=== PATIENT | male | born 1950 | race Caucasian/White ===

== ENCOUNTER 2019-07-14 10:21 | Outpatient (CLI) | payer MEDICARE, SELFPAY ==
--- NOTE | 2019-07-14 10:31 | ECG_ITS ---
Measurements Intervals [place] Rate: 58 P: 54 FL: 187 QRS: -21 QRSD: 165 T: 71 QT: 434 QTc: 429 Interpretive Statements SINUS BRADYCARDIA LEFT BUNDLE BRANCH BLOCK BASELINE ARTIFACT- I, II, III, AVR, AVL, AVF, V1-V6 ABNORMAL ECG Electronically Signed On 07-14-2019 11:50:08 [employer] by Graham Reis D.O.
== END 2019-07-14 10:22 | disposition home or self-care (01) ==
PROVIDERS: PCP Internal Medicine; Visit Provider Urology
DX: Z01.818 Encounter for other preprocedural examination (principal); I48.91 Unspecified atrial fibrillation; C61 Malignant neoplasm of prostate; I44.7 Left bundle-branch block, unspecified
CPT/HCPCS: 87086; 87088; 93005

== ENCOUNTER 2019-07-20 01:08 | Day surgery (SDC) | payer MEDICARE, SELFPAY ==
[2019-07-08 15:45] VITALS: BMI 29.0
[2019-07-20] VITALS (8 sets, daily range): BP systolic 115–149; BP diastolic 67–89; PULSE 57–65; RESP 8–18; TEMP 36.3–36.6; O2SAT 96–100
--- NOTE | 2019-07-20 08:49 | WPDHPUPDATE1 ---
History and Physical Update Update Date/Time: 07/20/19 08:49 History and Physical has been reviewed, including an updated exam of the patient. There are NO changes in the patient's condition. Risks, benefits, and alternatives have been discussed and questions answered. Patient agrees to proceed with procedure.
[2019-07-20] MEDS: LACTATED RINGERS 1,000 ML 30 ML IV CONT ×2 (09:32→11:49)
--- NOTE | 2019-07-20 09:47 | WPDHPUPDATE1 ---
History and Physical Update Update Date/Time: 07/20/19 09:47 History and Physical has been reviewed, including an updated exam of the patient. There are NO changes in the patient's condition. Risks, benefits, and alternatives have been discussed and questions answered. Patient agrees to proceed with procedure. Plan for Space OAR placement.
--- NOTE | 2019-07-20 09:48 | WPDANESEPPF ---
Anes - Initial Pre Proc Eval Procedure: Operation Date: 07/20/19 10:30 Proposed Procedures p Insertion Space OAR Hydrogel System - Dipak Salmon MD Date/Time: 07/20/19 09:48 Surgeon: Dipak Salmon MD Pre Op Diagnosis: Prostate CA Patient Data Age: 69 Gender: M Height: 6 ft 1 in Weight: 102.8 kg Last Vital Signs Temp 36.6 C 07/20/19 09:30 Pulse 57 L 07/20/19 09:30 Resp 18 07/20/19 09:30 BP 125/75 07/20/19 09:30 Pulse Ox 96 07/20/19 09:30 Allergies Allergy/AdvReac Type Severity Reaction Status Date / Time No Known Allergies Allergy Unknown Unverified 07/20/19 09:27 Home Medications Medication Instructions Recorded Confirmed Type apixaban [Eliquis] 5 mg PO BID 07/08/19 07/20/19 History diltiazem HCl [Cardizem] 120 mg PO DAILY 07/08/19 07/20/19 History glucos sul 5MTq-tti-mizvh-C-Mn 1 cap PO DAILY 07/08/19 07/20/19 History [Glucosamine Chondroitin] metoprolol succinate 12.5 mg PO HS 07/08/19 07/20/19 History multivitamin,fq-ifwq-triiouve 1 tablet PO DAILY 07/08/19 07/20/19 History [Complete Multivitamin] Patient hx anesthesia problems: none Family hx anesthesia problems: none PMFSH Past Medical History Medical History Afib CARMELA (obstructive sleep apnea) Prostate CA Anes - Eval Final PreProcedure Day of Procedure 07/20/19 09:48 Patient weight: overweight Heart: bradycardia Lungs: clear to auscultation Airway: Mallampati scale class II Neurological: alert and oriented Last oral intake: >/= 8 hours ASA classification: III Emergent: no Anesthetic plan: proceed Anesthesia type and monitoring: general LMA and standard monitoring Informed Consent: The patient's anesthetic plan and its attendant risks and benefits were discussed with the patient/family/POA. Questions were solicited and answers provided to the satisfaction of the patient/family/POA.
[2019-07-20] MEDS: ceFAZolin 2 GM/D5W 50 ML 2 GM/50 ML BAG IVPB (10:40)
--- NOTE | 2019-07-20 11:25 | PM.PROC ---
Procedure Note - Detailed Date of procedure: 07/20/19 Pre-op diagnosis: Prostate CA Post-op diagnosis: same Procedure performed: Transrectal ultrasound with space oar placement Description of procedure: Patient was taken to the operative suite and correctly identified. Once anesthesia was obtained he was placed in dorsal lithotomy position prepped draped usual sterile fashion. Transrectal ultrasound was then placed and the prostate was visualized in both planes. The space oar mixture was then prepared in the standard fashion. The needle guide was then inserted in the perineal space and was advanced in the plane between the prostate and the rectum. 1 cc of saline was injected to verify placement and separation of the planes. The syringe needle was aspirated to make sure there was no vascular insult. We then attached the space oar mixture to the needle. The needle tip was verified in both planes. The pressure was then injected in a slow fashion. There was good separation of the prostate from the rectum. Patient tolerated procedure well without any complications taken recovery room stable condition. Anesthesia: GLMA Surgeon: Dipak Salmon MD Drains: No Packing: No Pathology: none sent Complications: No immediate complications Condition: stable Disposition: PACU
== END 2019-07-20 13:07 | disposition home or self-care (01) ==
PROVIDERS: PCP Internal Medicine; Visit Provider Urology
PROC: (CPT 55874; principal; 2019-07-20 10:30)
DX: C61 Malignant neoplasm of prostate (principal); I48.91 Unspecified atrial fibrillation; G47.33 Obstructive sleep apnea (adult) (pediatric); Z79.01 Long term (current) use of anticoagulants
CPT/HCPCS: 55874; A9270; J0690; J1100; J2250; J2405; J2704; J7120

== ENCOUNTER 2019-07-30 06:59 | Outpatient (CLI) | payer MEDICARE, SELFPAY ==
--- NOTE | ~2019-07-30 | MR_ITS ---
EXAMINATION: MR pelvis wo/w con INDICATION: Prostate cancer TECHNIQUE: Coronal SSFSE ARC, Axial and Coronal 2D FIESTA FatSat, Axial T2 FS, Axial SSFSE BH ARC, Ax ial 3D DualEcho BH, Axial SSFSE-IR Aureliano, Axial DWI b=50-700, pre and dynamic postcontrast Axial LAVA A RC, WATER:POST Cor LAVA-FLEX COMPARISON: CT, 04/30/2019 CONTRAST: Multihance, 20 cc FINDINGS: There is a 3.2 x 1.5 cm nonenhancing fluid collection situated between the right posterolat eral aspect of the prostate and the rectum, likely related to prostate biopsy. Increased T1 signal in tensity in the peripheral zone of the prostate precontrast imaging, consistent with postbiopsy hemorr anjali. No abnormal enhancement is present after contrast administration. There are no pathologically e nlarged pelvic lymph nodes. No dilated loops of bowel are evident. The bladder and osseous structures are unremarkable. IMPRESSION: 1. Postbiopsy changes of the prostate without evidence of pelvic metastatic disease. Reviewed, dictated and finalized at location A. [employer] IMPRESSION: 1. Postbiopsy changes of the prostate without evidence of pelvic metastatic dis ease.
[2019-07-30 07:42] LABS: Blood Urea Nitrogen 16 mg/dL (8-26); Estimated Glomerular Filt Rate > 60
[2019-07-30 09:25] LABS: Basophils Percent Auto 0.3 % (0.2-1.2); Eosinophils Absolute Auto 0.2 K/mm3 (0-0.3); Eosinophils Percent Auto 2.8 % (0-4.4); Hematocrit 44.2 % (42.0-52.0); Immature Granulocyte Absolute 0.03 K/mm3 (0.00-0.031); Immature Granulocyte Percent A 0.5 % (0-0.5); Lymphocytes Absolute Auto 1.41 K/mm3 (0.9-3.2); Lymphocytes Percent Auto 23.3 % (18.3-44.2); Mean Corpuscular HGB Conc 33.9 g/dl (32-36); Mean Corpuscular Hemoglobin 29.9 pg (26-34); Mean Corpuscular Volume 88.2 fl (80-100); Mean Platelet Volume 9.5 fl (7.4-10.4); Monocytes Absolute Auto 0.7 K/mm3 (0.1-0.6); Monocytes Percent Auto 11.6 % (2.6-8.5); Neutrophils Absolute Auto 3.7 K/mm3 (1.3-6.7); Neutrophils Percent Auto 61.5 % (45.5-73.1); Platelet Count Result 274 k/mm3 (150-375); Red Blood Count 5.01 M/mm3 (4.6-6.20); Red Cell Distribution Width 12.5 % (11.5-14.5); White Blood Count 6.1 K/mm3 (4.5-10.0)
[2019-07-30 09:36] LABS: Alanine Aminotransferase 35 U/L (4-50); Albumin Level 4.4 g/dL (3.5-5.1); Alkaline Phosphatase 78 U/L (38-126); Aspartate Amino Transferase 34 U/L (17-59); Bilirubin,Total 0.6 mg/dL (0.2-1.3); Blood Urea Nitrogen 15 mg/dL (9-20); Calcium 10.2 mg/dL (8.4-10.2); Carbon Dioxide 28 mmol/L (22-30); Chloride 100 mmol/L (98-107); Estimated Glomerular Filt Rate > 60; Glucose 108 mg/dL (75-110); Potassium 4.3 mmol/L (3.4-5.0); Sodium 137 mmol/L (137-145)
[2019-07-30 10:48] LABS: Add Urine Microscopic? NO; Appearance Urine Clear (Clear); Bilirubin Urine Negative (Negative); Blood Urine Negative (Negative); Color Urine Colorless (Yellow); Glucose Urine UA Negative (Negative); Ketones Urine Negative (Negative); Leukocyte Esterase Ur Negative LEU/UL (NEGATIVE); Nitrate Urine Negative (Negative); Protein Urine Negative (Negative); Specific Grav Ur 1.012 (1.001-1.035); Urobilinogen Urine Negative mg/dL (<2.0)
== END 2019-07-30 07:00 | disposition home or self-care (01) ==
PROVIDERS: Visit Provider Radiology Radiation Oncology
DX: C61 Malignant neoplasm of prostate (principal)
CPT/HCPCS: 36415; 72197; 80053; 81003; 85025; A9577

== ENCOUNTER 2019-09-08 10:20 | Outpatient (CLI) | payer MEDICARE, SELFPAY ==
[2019-09-08 10:46] LABS: Basophils Percent Auto 0.5 % (0.2-1.2); Eosinophils Absolute Auto 0.2 K/mm3 (0-0.3); Hematocrit 38.7 % (42.0-52.0); Hemoglobin 13.3 g/dL (14.0-18.0); Immature Granulocyte Absolute 0.03 K/mm3 (0.00-0.031); Immature Granulocyte Percent A 0.7 % (0-0.5); Lymphocytes Absolute Auto 0.49 K/mm3 (0.9-3.2); Lymphocytes Percent Auto 11.1 % (18.3-44.2); Mean Corpuscular HGB Conc 34.4 g/dl (32-36); Mean Corpuscular Hemoglobin 30.4 pg (26-34); Mean Corpuscular Volume 88.4 fl (80-100); Mean Platelet Volume 9.1 fl (7.4-10.4); Monocytes Absolute Auto 0.8 K/mm3 (0.1-0.6); Monocytes Percent Auto 17.2 % (2.6-8.5); Neutrophils Absolute Auto 2.9 K/mm3 (1.3-6.7); Neutrophils Percent Auto 65.5 % (45.5-73.1); Platelet Count Result 156 k/mm3 (150-375); Red Blood Count 4.38 M/mm3 (4.6-6.20); Red Cell Distribution Width 12.6 % (11.5-14.5); White Blood Count 4.4 K/mm3 (4.5-10.0)
[2019-09-08 10:59] LABS: Alanine Aminotransferase 38 U/L (4-50); Albumin Level 4.2 g/dL (3.5-5.1); Alkaline Phosphatase 69 U/L (38-126); Aspartate Amino Transferase 38 U/L (17-59); Bilirubin,Total 0.9 mg/dL (0.2-1.3); Blood Urea Nitrogen 22 mg/dL (9-20); Carbon Dioxide 28 mmol/L (22-30); Chloride 103 mmol/L (98-107); Estimated Glomerular Filt Rate > 60; Glucose 113 mg/dL (75-110); Potassium 3.9 mmol/L (3.4-5.0); Sodium 136 mmol/L (137-145)
[2019-09-08 11:10] LABS: Add Urine Microscopic? YES; Appearance Urine Clear (Clear); Bilirubin Urine Negative (Negative); Blood Urine 3+ (Negative); Color Urine Straw (Yellow); Glucose Urine UA Negative (Negative); Ketones Urine Negative (Negative); Leukocyte Esterase Ur Negative LEU/UL (NEGATIVE); Nitrate Urine Negative (Negative); Protein Urine Negative (Negative); RBC Urine 0-2 /hpf (0-2); Specific Grav Ur 1.008 (1.001-1.035); Urobilinogen Urine Negative mg/dL (<2.0); WBC Urine 0-3 /hpf (0-3)
== END 2019-09-08 10:21 | disposition home or self-care (01) ==
PROVIDERS: Visit Provider Radiology Radiation Oncology
DX: C61 Malignant neoplasm of prostate (principal)
CPT/HCPCS: 36415; 80053; 81001; 85025

== ENCOUNTER 2019-10-06 10:16 | Outpatient (CLI) | payer MEDICARE, SELFPAY ==
[2019-10-06 10:52] LABS: Basophils Percent Auto 0.4 % (0.2-1.2); Eosinophils Absolute Auto 0.2 K/mm3 (0-0.3); Eosinophils Percent Auto 3.8 % (0-4.4); Hematocrit 40.3 % (42.0-52.0); Hemoglobin 13.6 g/dL (14.0-18.0); Immature Granulocyte Absolute 0.03 K/mm3 (0.00-0.031); Immature Granulocyte Percent A 0.6 % (0-0.5); Lymphocytes Absolute Auto 0.44 K/mm3 (0.9-3.2); Lymphocytes Percent Auto 9.4 % (18.3-44.2); Mean Corpuscular HGB Conc 33.7 g/dl (32-36); Mean Corpuscular Hemoglobin 30.4 pg (26-34); Mean Corpuscular Volume 90.2 fl (80-100); Monocytes Absolute Auto 0.7 K/mm3 (0.1-0.6); Monocytes Percent Auto 15.7 % (2.6-8.5); Neutrophils Absolute Auto 3.3 K/mm3 (1.3-6.7); Neutrophils Percent Auto 70.1 % (45.5-73.1); Platelet Count Result 217 k/mm3 (150-375); Red Blood Count 4.47 M/mm3 (4.6-6.20); Red Cell Distribution Width 13.6 % (11.5-14.5); White Blood Count 4.7 K/mm3 (4.5-10.0)
[2019-10-06 10:56] LABS: Add Urine Microscopic? YES; Appearance Urine Clear (Clear); Bilirubin Urine Negative (Negative); Blood Urine Negative (Negative); Color Urine Straw (Yellow); Glucose Urine UA Negative (Negative); Ketones Urine Negative (Negative); Leukocyte Esterase Ur Negative LEU/UL (NEGATIVE); Mucus Urine Rare /lpf; Nitrate Urine Negative (Negative); Protein Urine Negative (Negative); RBC Urine 0-2 /hpf (0-2); Specific Grav Ur 1.011 (1.001-1.035); Urobilinogen Urine Negative mg/dL (<2.0); WBC Urine 0-3 /hpf (0-3)
[2019-10-06 10:58] LABS: Alanine Aminotransferase 32 U/L (4-50); Albumin Level 4.3 g/dL (3.5-5.1); Alkaline Phosphatase 67 U/L (38-126); Aspartate Amino Transferase 34 U/L (17-59); Bilirubin,Total 0.5 mg/dL (0.2-1.3); Blood Urea Nitrogen 14 mg/dL (9-20); Calcium 10.3 mg/dL (8.4-10.2); Carbon Dioxide 32 mmol/L (22-30); Chloride 101 mmol/L (98-107); Estimated Glomerular Filt Rate > 60; Glucose 107 mg/dL (75-110); Potassium 4.7 mmol/L (3.4-5.0); Sodium 136 mmol/L (137-145)
== END 2019-10-06 10:17 | disposition home or self-care (01) ==
PROVIDERS: Visit Provider Radiology Radiation Oncology
DX: C61 Malignant neoplasm of prostate (principal)
CPT/HCPCS: 36415; 80053; 81001; 85025